=== PATIENT | female | born 1965 | race Caucasian/White ===

== ENCOUNTER 2019-07-19 14:55 | Emergency (ER) | payer OTHER ==
[~2019-07-19] VITALS: Ht 157.5 cm; Wt 49.9 kg
[2019-07-19] MEDS ORDERED: CALCITRIOL0.25 MCG (15:31)
[2019-07-19] MEDS ORDERED: FORTAMET500 MG (15:31)
[2019-07-19] MEDS ORDERED: SYNTHROID75 MCG (15:31)
[2019-07-19] MEDS ORDERED: METOPROLOL SUCC25 MG (15:31)
== END 2019-07-19 21:11 | disposition home or self-care (01) ==
LOC: ER 14:55
DX: R55 Syncope and collapse (principal)

== ENCOUNTER 2022-12-31 15:49 | Emergency (ER) | payer OTHER ==
[~2022-12-31] VITALS: Ht 157.5 cm; Wt 65.8 kg
[~2022-12-31 15:49] MED LIST: CALCITRIOL0.25 MCG; FORTAMET500 MG; METOPROLOL SUCC25 MG; SYNTHROID75 MCG
[2022-12-31] MEDS ORDERED: LACOSAMIDE200 MG (16:05)
[2022-12-31] MEDS ORDERED: ESCITALOPRA5 MG/5 ML (16:06)
[2022-12-31] MEDS ORDERED: CLONAZEPAM1 M1 (16:06)
[2022-12-31] MEDS ORDERED: STRATTERA25 MG (16:06)
[2022-12-31] MEDS ORDERED: CHLORTHALIDONE25 MG (16:07)
[2022-12-31] MEDS ORDERED: VYVANSE60 MG (16:07)
[2022-12-31] MEDS ORDERED: BENICAR40 MG (16:07)
== END 2022-12-31 18:32 | disposition home or self-care (01) ==
LOC: ER 15:49
DX: S00.83XA Contusion of other part of head, initial encounter (principal); W18.39XA Other fall on same level, initial encounter; Y93.9 Activity, unspecified; Y92.89 Other specified places as the place of occurrence of the external cause; Y99.9 Unspecified external cause status; E03.9 Hypothyroidism, unspecified; F32.A Depression, unspecified; Z88.8 Allergy status to other drugs, medicaments and biological substances

== ENCOUNTER 2023-02-27 10:27 | Emergency (ER) | payer OTHER ==
[~2023-02-27] VITALS: Ht 157.5 cm; Wt 59.0 kg
[~2023-02-27 10:27] MED LIST changes: +BENICAR40 MG; +CHLORTHALIDONE25 MG; +CLONAZEPAM1 M1; +ESCITALOPRA5 MG/5 ML; +LACOSAMIDE200 MG; +STRATTERA25 MG; +VYVANSE60 MG
== END 2023-02-27 13:59 | disposition home or self-care (01) ==
LOC: ER 10:27
DX: S09.8XXA Other specified injuries of head, initial encounter (principal); W18.39XA Other fall on same level, initial encounter; Y93.01 Activity, walking, marching and hiking; Y92.89 Other specified places as the place of occurrence of the external cause; Y99.8 Other external cause status; G43.909 Migraine, unspecified, not intractable, without status migrainosus; Z88.8 Allergy status to other drugs, medicaments and biological substances

== ENCOUNTER 2023-06-09 04:51 | Emergency (ER) | payer OTHER ==
[~2023-06-09] VITALS: Ht 157.5 cm; Wt 63.5 kg
== END 2023-06-09 07:33 | disposition home or self-care (01) ==
LOC: ER 04:51
DX: S00.03XA Contusion of scalp, initial encounter (principal); W17.89XA Other fall from one level to another, initial encounter; Y93.9 Activity, unspecified; Y92.9 Unspecified place or not applicable; Y99.9 Unspecified external cause status; M54.50 Low back pain, unspecified